=== PATIENT | male | born 1980 | race Two or more races ===

== ENCOUNTER 2019-02-10 18:30 | Emergency (ER) | payer SELFPAY ==
[~2019-02-10] VITALS: Ht 182.9 cm; Wt 140.6 kg
[2019-02-10 20:08] VITALS: BP 132/72
[2019-02-10] MEDS ORDERED: BACLOFEN 10 MG TAB PO ONE (21:00)
[2019-02-10] MEDS ORDERED: HYDROcodone-ACET 10/325MG TAB PO ONE (21:00)
== END 2019-02-11 04:02 | disposition home or self-care (01) ==
LOC: ER 18:30
DX: S86.912A Strain of unspecified muscle(s) and tendon(s) at lower leg level, left leg, initial encounter (principal); M62.831 Muscle spasm of calf; X58.XXXA Exposure to other specified factors, initial encounter; Y93.89 Activity, other specified; Y92.89 Other specified places as the place of occurrence of the external cause; Y99.0 Civilian activity done for income or pay
CPT/HCPCS: 73590; 82962; 93971